=== PATIENT | female | born 2000 | race Caucasian/White ===

== ENCOUNTER 2018-02-28 11:08 | Emergency (ER) | payer OTHER ==
[~2018-02-28] VITALS: Ht 157.5 cm; Wt 74.8 kg
== END 2018-02-28 17:00 | disposition home or self-care (01) ==
LOC: ER 11:08
DX: O20.0 Threatened abortion (principal); Z34.01 Encounter for supervision of normal first pregnancy, first trimester

== ENCOUNTER 2018-10-04 14:29 | Emergency (ER) | payer OTHER ==
[~2018-10-04] VITALS: Ht 157.5 cm; Wt 88.5 kg
== END 2018-10-04 18:02 | disposition home or self-care (01) ==
LOC: ER 14:29
DX: O26.891 Other specified pregnancy related conditions, first trimester (principal); R10.2 Pelvic and perineal pain; Z34.01 Encounter for supervision of normal first pregnancy, first trimester

== ENCOUNTER 2018-12-29 22:41 | Emergency (ER) | payer OTHER ==
[~2018-12-29] VITALS: Ht 157.5 cm; Wt 90.7 kg
[2018-12-30] MEDS ORDERED: KEFLEX500 MG PO (04:56)
== END 2018-12-30 05:09 | disposition home or self-care (01) ==
LOC: ER 22:41
DX: O20.0 Threatened abortion (principal); O23.42 Unspecified infection of urinary tract in pregnancy, second trimester; Z34.82 Encounter for supervision of other normal pregnancy, second trimester